=== PATIENT | female | born 1950 | race Caucasian/White ===

== ENCOUNTER → 2020-03-02 | Day surgery (SDC) | payer MEDICARE ==
--- NOTE | 2020-03-01 13:04 | NUR ---
Dr. Rooney notified patient last took Eliquis 5mg po this morning. No new orders at this time.
[2020-03-01 13:08] LABS: BASOPHILS # (AUTO) 0.1 (0.0-0.1); BASOPHILS % 0.9 % (0.0-1.0); EOSINOPHILS # (AUTO) 0.1 (0.0-0.4); EOSINOPHILS % 1.3 % (0.0-6.0); HEMATOCRIT 42.7 % (34.2-44.1); HEMOGLOBIN 14.2 g/dL (12.0-16.0); LYMPHOCYTES # (AUTO) 2.6 (1.0-3.2); LYMPHOCYTES % 34.7 % (18.0-39.1); MEAN CORPUSCULAR HEMOGLOBIN 31.3 pg (28-32); MEAN CORPUSCULAR HGB CONC 33.3 g/dL (31-35); MEAN CORPUSCULAR VOLUME 94.3 fL (81-99); MONOCYTES # (AUTO) 0.9 (0.2-0.8); MONOCYTES % 11.2 % (4.4-11.3); NEUTROPHILS # (AUTO) 3.9 (2.1-6.9); NEUTROPHILS % 51.6 % (38.7-80.0); PLATELET COUNT 296 x10e3/uL (140-360); RED BLOOD COUNT 4.53 x10e6/uL (3.6-5.1); RED CELL DISTRIBUTION WIDTH 13.1 % (11.7-14.4)
[2020-03-01 13:29] LABS: ALANINE AMINOTRANSFERASE 14 IU/L (0-55); ALBUMIN 3.6 g/dL (3.5-5.0); ALKALINE PHOSPHATASE 199 IU/L (40-150); ANION GAP 11.4 mmol/L (8-16); BLOOD UREA NITROGEN 7 mg/dL (7-26); BUN/CREATININE RATIO 10 (6-25); CALCIUM 10.1 mg/dL (8.4-10.2); CARBON DIOXIDE 31 mmol/L (22-29); CHLORIDE 98 mmol/L (98-107); EST GLOMERULAR FILTRATION RATE > 60 ML/MIN (60-); GLUCOSE 106 mg/dL (74-118); POTASSIUM 4.4 mmol/L (3.5-5.1); SODIUM 136 mmol/L (136-145)
[~2020-03-02] VITALS: Ht 152.4 cm; Wt 113.4 kg
[~2020-03-02] MED LIST: ATORVASTATIN CA20 MG PO; ELIQUIS5 MG PO; FENTANYL CITRATE/PF 100MCG/2 ML INJ ONE; FUROSEMIDE40 MG PO; HEPARIN SOD/SOD CHLORIDE 2,000 ML ONE; HYDRALAZINE HCL25 MG PO; IOPAMIDOL 370 MG/ML 200 ML INFUS..BTL INJ ONE; LIDOCAINE HCL 2% LOCAL 20 ML VIAL ONE; LOSARTAN POTAS100 MG PO; METOPROLOL TART50 MG PO; MIDAZOLAM HCL 2 MG/2 ML VIAL ONE; PANTOPRAZOLE SO40 MG PO; SODIUM CHLORIDE 0.9% 1000ML 1,000 ML ONE; VERAPAMIL HCL 2.5 MG/ML 2 ML VIAL ONE
[2020-03-02 13:30] VITALS: BP 177/89
--- NOTE | 2020-03-02 20:17 | Operative Report ---
DATE OF PROCEDURE: 03/02/2020 SURGEON: Paolo Rooney MD INDICATIONS: Coronary artery disease, congestive heart failure, and abnormal stress test. PROCEDURES PERFORMED: 1. Left heart catheterization, selective coronary angiography. 2. Right heart catheterization. 3. Conscious sedation and administration, hemodynamic and neurological monitoring recovery by petroleum laboratory technician RN, supervision by MD for 35 minutes. COMPLICATIONS: None. RECOMMENDATIONS: Addition of continuous oxygen. Aldactone and amlodipine for severe pulmonary hypertension. CT of the chest, transesophageal echocardiogram and pulmonary function testing. Consider referral to destination specialist for severe pulmonary hypertension. DESCRIPTION OF PROCEDURE: Access was obtained in the right radial artery. A 5-Portuguese sheath was placed. Access was obtained in the right cephalic vein. A 7-Portuguese sheath was placed. Balloon flotation [place] catheterization revealed pressures as follows. Right atrial pressure 20 mmHg. Right ventricular pressure 75/13 mmHg. Pulmonary artery pressure 76/34 with a mean of 48 mmHg. Pulmonary capillary wedge pressure 8 mmHg. Cardiac output 4.4 L/minute. Cardiac index 2.0 L/minute/meter squared. Arterial saturation 86%. LV end-diastolic pressure 21%. LV ejection fraction 60%. Coronary angiography demonstrated mild coronary artery disease, 20% luminal stenosis. No critical stenosis or occlusion noted. No intervention deemed necessary. Right wrist TR band applied. Venous sheath was removed under manual pressure. The patient discharged home the same day. Paolo Rooney MD [facility] /[id number]
== END | disposition home or self-care (01) ==
LOC: CATH LAB 13:08
PROVIDERS: ATTEND Internal Medicine Interventional Cardiology
DX: I25.118 Atherosclerotic heart disease of native coronary artery with other forms of angina pectoris (principal); I11.0 Hypertensive heart disease with heart failure; I50.810 Right heart failure, unspecified; I48.19 Other persistent atrial fibrillation; I27.29 Other secondary pulmonary hypertension; R94.39 Abnormal result of other cardiovascular function study; Z01.812 Encounter for preprocedural laboratory examination; Z79.02 Long term (current) use of antithrombotics/antiplatelets
CPT/HCPCS: 36415; 80053; 85025; 93460; C1766; C1769; C1887; J2001; J2250; J3010; J7030; Q9967; 99152; 99153